=== PATIENT | male | born 1930 | race Caucasian/White ===

== ENCOUNTER 2017-05-09 07:55 | Day surgery (SDC) | payer MEDICARE ==
[~2017-05-09 07:55] MED LIST: Buffered Lidocaine 0.9% SYRIN* 5 ML/SYR SYRINGE INTRADERM ONE; Dexamethasone IV* 4 MG/ML 1 ML (4 MG) IV SLOW PU ONE; Famotidine IV* 10 MG/ML 2 ML (20 mg) IV ONE
[2017-05-09] MEDS ORDERED: Famotidine IV* 10 MG/ML 2 ML (20 mg) ONE (07:59)
[2017-05-09] MEDS ORDERED: Buffered Lidocaine 0.9% SYRIN* 5 ML/SYR SYRINGE ONE (08:00)
[2017-05-09] MEDS ORDERED: Dexamethasone IV* 4 MG/ML 1 ML (4 MG) ONE (08:00)
[2017-05-09] MEDS ORDERED: Mineral Oil Sterile, TOPICAL* 25 ML BTL ONE (09:46)
[2017-05-09] MEDS ORDERED: Methylene Blue 0.5 %* 50 MG/10 ML AMP IV ONE (09:46)
[2017-05-09] MEDS ORDERED: Lidocaine 1% MPF wEPI 200,000* 30 ML SDV ONE (09:46)
[2017-05-09] MEDS ORDERED: Bupivacaine 0.25% EPI 200,000* 30 ML SDV ONE (09:46)
[2017-05-09] MEDS ORDERED: fentaNYL* 50 MCG/ML 2 ML VIAL (100 MCG VIAL) ONE (09:48)
[2017-05-09] MEDS ORDERED: Ondansetron INJ* 2 MG/ML VIAL ONE (09:48)
[2017-05-09] MEDS ORDERED: Propofol* 10 MG/ML 20 ML BTL IV PUSH ONE (09:48)
[2017-05-09] MEDS ORDERED: Midazolam* 1 MG/ML 5 ML VIAL (5 MG) ONE (09:48)
[2017-05-09 12:09] VITALS: BP 127/75
== END 2017-05-09 12:16 | disposition home or self-care (01) ==
LOC: OR 07:55
PROVIDERS: ATTEND Plastic Surgery
PROC: 0HB0XZZ Excision of Scalp Skin, External Approach (ICD-10-PCS; principal; 2017-05-09 09:30)
DX: L90.5 Scar conditions and fibrosis of skin (principal); I10 Essential (primary) hypertension; N40.0 Benign prostatic hyperplasia without lower urinary tract symptoms; G47.33 Obstructive sleep apnea (adult) (pediatric); Z88.2 Allergy status to sulfonamides; Z88.1 Allergy status to other antibiotic agents; Z88.0 Allergy status to penicillin
CPT/HCPCS: 88305; 88331; 88332; A9270-GY; J1100; J2001; J2250; J2405; J2704; J3010

== ENCOUNTER 2017-10-04 16:45 | Emergency (ER) | payer OTHER ==
[2017-10-04 20:58] LABS: Hematocrit 44 % (42-52); Hemoglobin 14.9 g/dl (14.0-18.0); Mean Corpuscular HGB Conc 34 g/dl (31-36); Mean Corpuscular Hemoglobin 30 pg (27-31); Mean Corpuscular Volume 87 fL (80-94); Mean Platelet Volume 9 um3 (7.4-10.4); Red Blood Count 5.04 10^6/ul (4.0-5.4); Red Cell Distribution Width 13 % (10.5-15); White Blood Count 10.6 10^3/ul (3.5-10.8)
[2017-10-04 21:09] LABS: Urine Bacteria Absent (Absent); Urine Bilirubin Negative (Negative); Urine Glucose Negative (Negative); Urine Nitrite Negative (Negative)
[2017-10-04 21:13] LABS: ALT 16 U/L (7-52); Albumin 4.5 g/dL (3.2-5.2); Alkaline Phosphatase 60 U/L (34-104); Amylase 36 U/L (29-103); BUN/Creatinine Ratio 14.8 (8-20); Blood Urea Nitrogen 13 mg/dL (6-24); C Reactive Protein 7.72 mg/L (< 5.00); CO2 Carbon Dioxide 29 mmol/L (22-32); Calcium 9.9 mg/dL (8.6-10.3); Chloride 98 mmol/L (101-111); Creatine Kinase 194 U/L (10-223); EGFR African American 106.1 (>60); EGFR Non-African American 82.5 (>60); Globulin 3.5 g/dL (2-4); Glucose 113 mg/dL (70-100); Lipase 10 U/L (11.0-82.0); Magnesium 2.2 mg/dL (1.9-2.7); Sodium 136 mmol/L (133-145)
[2017-10-04 21:14] LABS: Troponin I 0.01 ng/mL (<0.04)
[2017-10-04 21:26] LABS: Anion Gap 9 mmol/L (2-11)
[2017-10-04] MEDS ORDERED: Iohexol 300* (CONTRAST) 10 ML SDV IV ONE (23:51)
[2017-10-05] MEDS ORDERED: Potassium Chlor TAB* 20 MEQ TAB.ER PO ONE (00:44)
[2017-10-05 00:58] VITALS: BP 156/84
--- NOTE | 2017-10-05 08:36 | RAD ---
INDICATION: Right lower quadrant abdominal pain. COMPARISON: Comparison is made with a prior CT of the abdomen and pelvis from November 16, 2009. TECHNIQUE: A CT scan of the abdomen and pelvis was performed with intravenous and oral contrast following intravenous injection of 127 ml of Omnipaque 300 nonionic contrast. Contiguous axial sections were obtained from the lung bases through the symphysis pubis. Images were reconstructed in the coronal and sagittal planes. FINDINGS: There is mild dependent bilateral lower lobe subsegmental atelectasis. No pleural effusion is present. The liver and spleen are normal in size. There is a small 0.5 cm hypodense lesion present in the inferior portion of the right hepatic lobe which is unchanged from the prior exam most consistent with a cyst. No other focal hepatic abnormalities are seen. No calcified gallstones are noted. The pancreas is normal in size. There is a very small cystic lesion in the tail of pancreas measuring 0.3 cm in size which is unchanged from the prior exam. No pancreatic ductal distention or calcifications are seen. The adrenal glands appear to be within normal limits. 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 No renal calculi are seen. There are multiple bilateral renal cysts. In addition there is a new hypodense lesion arising the posterior aspect of the left kidney measuring 2.1 x 1.5 cm in size possibly representing a complex cyst less likely a solid abnormality. Recommend a renal ultrasound for further evaluation. No hydronephrosis is seen. No urinary bladder wall thickening is noted. The prostate gland is enlarged measuring 6.0 cm in transverse dimension. The aorta is normal in caliber with mild calcific plaque present. No significant enlarged retroperitoneal lymph nodes are seen. There appears to be a small hiatal hernia. The stomach, small and large bowel appear nondistended. The appendix is not well visualized. No inflammatory changes are seen in the right lower quadrant. There is mild descending and sigmoid diverticulosis without evidence for diverticulitis. No free intraperitoneal air or fluid is seen. No significant focal osseous abnormality is seen. IMPRESSION: 1. NO EVIDENCE FOR ACUTE FINDING OR CAUSE FOR THE PATIENT'S ABDOMINAL PAIN IS SEEN. 2. COMPLEX LEFT RENAL CYST VERSUS SOLID ABNORMALITY. RECOMMEND A RENAL ULTRASOUND FOR FURTHER EVALUATION.
--- NOTE | 2017-10-05 12:24 | ED ---
Dale Leal Alfonso, scribed for Zoila Luna MD on 10/04/17 at 2030 . Abdominal Pain/Male - HPI Summary HPI Summary: This patient is an 86 year old M presenting to [facility] with a chief complaint of burning and dull RLQ abdominal pain since approximately 1 month ago, worse since yesterday. The pain radiates to his back, right groin, and right hip. The patient rates the pain 6/10 in severity. Symptoms aggravated by nothing. Symptoms alleviated by nothing. Patient reports nausea (mild), constipation ( 1.5 months), diarrhea (1.5 months with mucous and alleviated by Imodium), feeling bloated, and gas (1.5 months). Patient denies fever, CP, vomiting, blood in the stool, melena, dysuria, testicular pain, and recent trauma. He was on a 1 week course of abx a few weeks ago. States he has been tested for C difficile since that course of antibiotics and it was negative. Pt drove himself to the ED and is alone in the ED because his has Parkinson's and requires mercantile agent care. Pt declines pain medication at this time, because he is hoping to be able to drive himself home if there is no serious illness. Pt states he just wants to know if it is appendicitis or anything serious or emergent tonight. Pt states he had an episode of abd pain years ago, where his bowel was "twisted on itself" and he had a colonscopy that straightened out the bowel, and did not require surgery. - History of Current Complaint Chief Complaint: Kasia Stated Complaint: ABD PAIN Time Seen by Provider: 10/04/17 20:26 Hx Obtained From: Patient Onset/Duration: Gradual Onset, Still Present, Worse Since - yesterday, Other - Lasting 1 month Timing: Constant Severity Initially: Moderate Severity Currently: Moderate Pain Intensity: 6 Pain Scale Used: 0-10 Numeric Location: Discrete At: RLQ Radiates: Yes Radiates to: Other - back, right groin, and right hip Character: Dull, Burning Aggravating Factor(s): Nothing Alleviating Factor(s): Nothing Associated Signs And Symptoms: Positive: Constipation, Nausea, Diarrhea, Other - nausea (mild), constipation (1.5 months), diarrhea (1.5 months with mucous and alleviated by Imodium), feeling bloated, and gas (1.5 months). Patient denies fever, CP, vomiting, blood in the stool, melena, dysuria, and recent trauma. - Allergies/Home Medications Allergies/Adverse Reactions: Allergies Allergy/AdvReac Type Severity Reaction Status Date / Time Atorvastatin [From Lipitor] Allergy Unknown Verified 05/09/17 08:13 Reaction Details Cetirizine [From Zyrtec] Allergy Unknown Verified 05/09/17 08:13 Reaction Details Ciprofloxacin Allergy Unknown Verified 05/09/17 08:13 Reaction Details Clindamycin Allergy NIGHTMARES Verified 05/09/17 08:13 Fluticasone [From Flonase] Allergy Unknown Verified 05/09/17 08:13 Reaction Details Lisinopril Allergy FACIAL Verified 05/09/17 08:13 SWELLING Penicillins [PCN] Allergy FACIAL Verified 05/09/17 08:13 SWELLING Pravastatin Allergy Unknown Verified 05/09/17 08:13 Reaction Details SULFA DRUGS Allergy FACIAL Uncoded 05/09/17 08:13 SWELLING PMH/Surg Hx/FS Hx/Imm Hx Previously Healthy: No Cardiovascular History: Reports: Hx Hypertension - ON MEDICATION FOR, Hx Rheumatic Fever - A CHILD- STATES NO KNOWN MURMUR Respiratory History: Reports: Other Respiratory Problems/Disorders - 15-20 YEARS AGO- PNEUMONIA History: Reports: Hx Benign Prostatic Hyperplasia - sees Dr. Amezquita, is on Tamsulosin Musculoskeletal History: Reports: Hx Arthritis - HIP AND KNEES Sensory History: Reports: Hx Cataracts - BILATERAL, Hx Contacts or Glasses - GLASSES, Hx Hearing Aid - BILATERAL Opthamlomology History: Reports: Hx Cataracts - BILATERAL, Hx Contacts or Glasses - GLASSES EENT History: Denies: Hx Deafness - Surgical History Surgery Procedure, Year, and Place: left side "artery clip" by Dr Zhao 10-15 yrs ago-points at his left tenriism. 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 Hx Anesthesia Reactions: No Infectious Disease History: No Infectious Disease History: Denies: Traveled Outside the [place] in Last 30 Days - Family History Known Family History: Positive: Other - Lung cancer (father) and CVA (mother); negative skin cancer, aneurysm Negative: Cardiac Disease - Social History Occupation: Retired Lives: With Family Alcohol Use: Rare Hx Substance Use: No Substance Use Type: Reports: None Hx Tobacco Use: Yes Smoking Status (MU): Former Smoker Amount Used/How Often: 1/4-1/2 PPD X 7 YEARS Have You Smoked in the Last Year: No Review of Systems Negative: Fever Negative: Chest Pain Respiratory: Negative Positive: Abdominal Pain, Nausea, Other - constipation (1.5 months), diarrhea ( 1.5 months with mucous and alleviated by Imodium), feeling bloated, and gas ( 1.5 months). Negative blood in the stool, melena. Negative: Vomiting Negative: dysuria Positive: Other - Negative recent trauma Skin: Negative Neurological: Negative Psychological: Normal All Other Systems Reviewed And Are Negative: Yes Physical Exam Triage Information Reviewed: Yes Vital Signs On Initial Exam: Initial Vitals Temp Pulse Resp BP Pulse Ox 97.0 F 87 16 172/92 98 10/04/17 16:48 10/04/17 16:48 10/04/17 16:48 10/04/17 16:48 10/04/17 16:48 Vital Signs Reviewed: Yes Appearance: Positive: Well-Appearing, Pain Distress, Obese Skin: Positive: Warm, Skin Color Reflects Adequate Perfusion Head/Face: Positive: Normal Head/Face Inspection Eyes: Positive: EOMI, Conjunctiva Clear ENT: Positive: Normal ENT inspection Neck: Positive: Supple Respiratory/Lung Sounds: Positive: Clear to Auscultation, Breath Sounds Present , Other - no respiratory distress Cardiovascular: Positive: RRR, Pulses are Symmetrical in both Upper and Lower Extremities, Other - brisk capillary refill. Negative: Murmur Abdomen Description: Positive: No Organomegaly, Soft, McBurney's Point Tenderness, Other: - Mild RLQ tenderness, No guarding, no rebound. No pulsatile mass, no bruits. Femoral pulses 2+ bilaterally with no bruits. Bowel Sounds: Positive: Present Male Genital Exam: Positive: normal genitalia, other - no testicular masses or tenderness; normal uncircumcised penis, no inguinal or femoral hernia bilaterally Musculoskeletal: Positive: Strength/ROM Intact, Other - No calf tenderness. Negative: Edema Left, Edema Right Neurological: Positive: Sensory/Motor Intact, Alert, Oriented to Person Place, Time, Normal Gait, Facial Symmetry, Speech Normal Psychiatric: Positive: Normal - Boyd Coma Scale Coma Scale Total: 15 Diagnostics - Vital Signs Vital Signs Temp Pulse Resp BP Pulse Ox 10/04/17 16:48 97.0 F 87 16 172/92 98 - Laboratory Lab Results: Lab Results 10/04/17 10/04/17 10/04/17 Range/Units 20:35 20:50 20:50 WBC (3.5-10.8) 10^3/ul RBC (4.0-5.4) 10^6/ul Hgb (14.0-18.0) g/dl Hct (42-52) % MCV (80-94) fL MCH (27-31) pg MCHC (31-36) g/dl RDW (10.5-15) % Plt Count (150-450) 10^3/ul MPV (7.4-10.4) um3 Neut % (Auto) (38-83) % Lymph % (Auto) (25-47) % Luna % (Auto) (1-9) % Eos % (Auto) (0-6) % Baso % (Auto) (0-2) % Absolute Neuts (auto) (1.5-7.7) 10^3/ul Absolute Lymphs (auto) (1.0-4.8) 10^3/ul Absolute Monos (auto) (0-0.8) 10^3/ul Absolute Eos (auto) (0-0.6) 10^3/ul Absolute Basos (auto) (0-0.2) 10^3/ul Absolute Nucleated RBC 10^3/ul Nucleated RBC % INR (Anticoag Therapy) (0.89-1.11) APTT (26.0-36.3) seconds Sodium 136 (133-145) mmol/L Potassium TNP Chloride 98 L (101-111) mmol/L Carbon Dioxide 29 (22-32) mmol/L Anion Gap 9 (2-11) mmol/L BUN 13 (6-24) mg/dL Creatinine 0.88 (0.67-1.17) mg/dL Est GFR ( Amer) 106.1 (>60) Est GFR (Non-Af Amer) 82.5 (>60) BUN/Creatinine Ratio 14.8 (8-20) Glucose 113 H (70-100) mg/dL Lactic Acid (0.5-2.0) mmol/L Calcium 9.9 (8.6-10.3) mg/dL Magnesium 2.2 (1.9-2.7) mg/dL Total Bilirubin 0.80 (0.2-1.0) mg/dL AST TNP ALT 16 (7-52) U/L Alkaline Phosphatase 60 (34-104) U/L Total Creatine Kinase 194 (10-223) U/L Troponin I 0.01 (<0.04) ng/mL C-Reactive Protein 7.72 H (< 5.00) mg/L B-Natriuretic Peptide 22 ( - 100) pg/mL Total Protein 8.0 (6.4-8.9) g/dL Albumin 4.5 (3.2-5.2) g/dL Globulin 3.5 (2-4) g/dL Albumin/Globulin Ratio 1.3 (1-3) Amylase 36 (29-103) U/L Lipase 10 L (11.0-82.0) U/L Urine Color Yellow Urine Appearance Clear Urine pH 7.0 (5-9) Ur Specific [place] 1.010 (1.010-1.030) Urine Protein 2+(100 mg/dl) H (Negative) Urine Ketones Negative (Negative) Urine Blood Negative (Negative) Urine Nitrate Negative (Negative) Urine Bilirubin Negative (Negative) Urine Urobilinogen Negative (Negative) Ur Leukocyte Esterase Negative (Negative) Urine WBC (Auto) Absent (Absent) Urine RBC (Auto) Absent (Absent) Urine Bacteria Absent (Absent) Urine Glucose Negative (Negative) Urine Ascorbic Acid * H (Negative) 10/04/17 10/04/17 10/04/17 Range/Units 20:50 20:50 20:50 WBC 10.6 (3.5-10.8) 10^3/ul RBC 5.04 (4.0-5.4) 10^6/ul Hgb 14.9 (14.0-18.0) g/dl Hct 44 (42-52) % MCV 87 (80-94) fL MCH 30 (27-31) pg MCHC 34 (31-36) g/dl RDW 13 (10.5-15) % Plt Count 280 (150-450) 10^3/ul MPV 9 (7.4-10.4) um3 Neut % (Auto) 68.4 (38-83) % Lymph % (Auto) 21.1 L (25-47) % Luna % (Auto) 6.7 (1-9) % Eos % (Auto) 3.0 (0-6) % Baso % (Auto) 0.8 (0-2) % Absolute Neuts (auto) 7.3 (1.5-7.7) 10^3/ul Absolute Lymphs (auto) 2.2 (1.0-4.8) 10^3/ul Absolute Monos (auto) 0.7 (0-0.8) 10^3/ul Absolute Eos (auto) 0.3 (0-0.6) 10^3/ul Absolute Basos (auto) 0.1 (0-0.2) 10^3/ul Absolute Nucleated RBC 0.01 10^3/ul Nucleated RBC % 0.1 INR (Anticoag Therapy) 0.87 L (0.89-1.11) APTT 28.3 (26.0-36.3) seconds Sodium (133-145) mmol/L Potassium Chloride (101-111) mmol/L Carbon Dioxide (22-32) mmol/L Anion Gap (2-11) mmol/L BUN (6-24) mg/dL Creatinine (0.67-1.17) mg/dL Est GFR ( Amer) (>60) Est GFR (Non-Af Amer) (>60) BUN/Creatinine Ratio (8-20) Glucose (70-100) mg/dL Lactic Acid 1.2 (0.5-2.0) mmol/L Calcium (8.6-10.3) mg/dL Magnesium (1.9-2.7) mg/dL Total Bilirubin (0.2-1.0) mg/dL AST ALT (7-52) U/L Alkaline Phosphatase (34-104) U/L Total Creatine Kinase (10-223) U/L Troponin I (<0.04) ng/mL C-Reactive Protein (< 5.00) mg/L B-Natriuretic Peptide ( - 100) pg/mL Total Protein (6.4-8.9) g/dL Albumin (3.2-5.2) g/dL Globulin (2-4) g/dL Albumin/Globulin Ratio (1-3) Amylase (29-103) U/L Lipase (11.0-82.0) U/L Urine Color Urine Appearance Urine pH (5-9) Ur Specific [place] (1.010-1.030) Urine Protein (Negative) Urine Ketones (Negative) Urine Blood (Negative) Urine Nitrate (Negative) Urine Bilirubin (Negative) Urine Urobilinogen (Negative) Ur Leukocyte Esterase (Negative) Urine WBC (Auto) (Absent) Urine RBC (Auto) (Absent) Urine Bacteria (Absent) Urine Glucose (Negative) Urine Ascorbic Acid (Negative) 10/04/17 Range/Units 21:38 WBC (3.5-10.8) 10^3/ul RBC (4.0-5.4) 10^6/ul Hgb (14.0-18.0) g/dl Hct (42-52) % MCV (80-94) fL MCH (27-31) pg MCHC (31-36) g/dl RDW (10.5-15) % Plt Count (150-450) 10^3/ul MPV (7.4-10.4) um3 Neut % (Auto) (38-83) % Lymph % (Auto) (25-47) % Luna % (Auto) (1-9) % Eos % (Auto) (0-6) % Baso % (Auto) (0-2) % Absolute Neuts (auto) (1.5-7.7) 10^3/ul Absolute Lymphs (auto) (1.0-4.8) 10^3/ul Absolute Monos (auto) (0-0.8) 10^3/ul Absolute Eos (auto) (0-0.6) 10^3/ul Absolute Basos (auto) (0-0.2) 10^3/ul Absolute Nucleated RBC 10^3/ul Nucleated RBC % INR (Anticoag Therapy) (0.89-1.11) APTT (26.0-36.3) seconds Sodium (133-145) mmol/L Potassium 3.3 L Chloride (101-111) mmol/L Carbon Dioxide (22-32) mmol/L Anion Gap (2-11) mmol/L BUN (6-24) mg/dL Creatinine (0.67-1.17) mg/dL Est GFR ( Amer) (>60) Est GFR (Non-Af Amer) (>60) BUN/Creatinine Ratio (8-20) Glucose (70-100) mg/dL Lactic Acid (0.5-2.0) mmol/L Calcium (8.6-10.3) mg/dL Magnesium (1.9-2.7) mg/dL Total Bilirubin (0.2-1.0) mg/dL AST 17 ALT (7-52) U/L Alkaline Phosphatase (34-104) U/L Total Creatine Kinase (10-223) U/L Troponin I (<0.04) ng/mL C-Reactive Protein (< 5.00) mg/L B-Natriuretic Peptide ( - 100) pg/mL Total Protein (6.4-8.9) g/dL Albumin (3.2-5.2) g/dL Globulin (2-4) g/dL Albumin/Globulin Ratio (1-3) Amylase (29-103) U/L Lipase (11.0-82.0) U/L Urine Color Urine Appearance Urine pH (5-9) Ur Specific [place] (1.010-1.030) Urine Protein (Negative) Urine Ketones (Negative) Urine Blood (Negative) Urine Nitrate (Negative) Urine Bilirubin (Negative) Urine Urobilinogen (Negative) Ur Leukocyte Esterase (Negative) Urine WBC (Auto) (Absent) Urine RBC (Auto) (Absent) Urine Bacteria (Absent) Urine Glucose (Negative) Urine Ascorbic Acid (Negative) Result Diagrams: 10/04/17 20:50 10/04/17 21:38 Lab Statement: Any lab studies that have been ordered have been reviewed, and results considered in the medical decision making process. - CT A/P CT Interpretation Completed By: Radiologist - New complex cyst or mass emanating from the posterior left renal midpole which can be further evaluated with nonemergent US. No definite acute pathology. ED physician has reviewed this radiology report and agrees. - EKG 2110 Cardiac Rate: NL EKG Rhythm: Sinus Rhythm - [address] Segment: Non-Specific EKG Interpretation: Nml AV/IV conduction time and QTC. -35 negative axis. Q wave in III and AVF EKG Comparison: Other - No prior to compare Re-Evaluation - Re-Evaluation First Eval Re-Evaluation Time: 00:20 Change: Improved - pt ambulated to BR. Pain is controlled without pain medication. Awaiting CT. Second Eval Re-Evaluation Time: 00:48 Change: Improved Comment: Reviewed labs and plan for discharge. Patient understands and agrees. He reports feeling much better. Pt voices understanding of the findings of the CT describing mass vs cyst in his left kidney. Pt has no pain in his left flank or abdomen and no hematuria. States he knows he has had cysts in his kidney and will be sure to follow up with Dr. Cruz. Abdominal Pain Fem Course/Dx - Course Assessment/Plan: This patient is an 86 year old M presenting to [facility] with a chief complaint of burning and dull RLQ abdominal pain since approximately 1 month ago, worse since yesterday. The pain radiates to his back, right groin, and right hip. The patient rates the pain 6/10 in severity. Symptoms aggravated by nothing. Symptoms alleviated by nothing. Patient reports nausea (mild), constipation (1.5 months), diarrhea (1.5 months with mucous and alleviated by Imodium), feeling bloated, and gas (1.5 months). Patient denies fever, CP, vomiting, blood in the stool, melena, dysuria, and recent trauma. He was on a 1 week course of abx a few weeks ago. An EKG reveals Sinus Rhythm at. 80 BPM. Nml AV/IV conduction time and QTC. -35 negative axis. Q wave in III and AVF. Nonspecific ST and T wave changes. No prior EKG to compare. CT A/P reveals, per radiologist, New complex cyst or mass emanating from the posterior left renal midpole which can be further evaluated with nonemergent US. No definite acute pathology. ED physician has reviewed this radiology report and agrees. Patient s medications reviewed this visit. Pt declined pain medication while in the ED, hoping to drive himself home. Pt was given KCl 40 mEq for K+ 3.3. Patient will be discharged to follow up with Dr. Cruz. The patient is agreeable with this plan. - Diagnoses Differential Diagnosis/HQI/PQRI: Abdominal Aortic Aneurysm, Appendicitis, Bowel Obstruction, Constipation, Pancreatitis, Renal Colic, Ureteral Stone, Urinary Tract Infection Provider Diagnoses: Acute abdominal pain in right lower quadrant, left renal mass vs cyst, Hypertension, poor control, Hypokalemia Discharge - Discharge Plan Condition: Stable Disposition: HOME Patient Education Materials: Acute Abdominal Pain (ED) Referrals: Linda Cruz MD [Primary Care Provider] - 2 Days () Additional Instructions: The CT scan did not show appendicitis. It showed a complex cyst or a mass on the left kidney which is new compared to a CT done on 11/16/09. This needs to be evaluated further with Dr. Cruz, including an ultrasound. This is a preliminary report. Be sure to have Dr. Cruz check the final report. Return to the ER if you have new or worsening symptoms. The documentation as recorded by the Dale barraza Alfonso accurately reflects the service I personally performed and the decisions made by , Zoila Luna MD.
== END 2017-10-05 01:00 | disposition home or self-care (01) ==
LOC: ED 16:45
DX: R10.31 Right lower quadrant pain (principal); N28.89 Other specified disorders of kidney and ureter; I10 Essential (primary) hypertension; E87.6 Hypokalemia
CPT/HCPCS: 36415; 74177; 80053; 81003; 81015; 82150; 82550; 83605; 83690; 83735; 83880; 84484; 85025; 85610; 85730; 86140; 93005; 99283; A9270-GY; Q9967

== ENCOUNTER 2018-05-19 22:36 | Inpatient (IN) | payer BC, MEDICARE, OTHER ==
[2018-05-19] MEDS ORDERED: Acetaminophen TAB* 325 MG PO ONE (23:07)
[2018-05-19] MEDS ORDERED: Vancomycin(*) 1,000 MG in NS 0.9% 250 ML* 250 ML IVPB ONE (23:19)
[2018-05-19 23:25] LABS: ABS Basophils 0.1 10^3/ul (0-0.2); ABS Eosinophils 0.2 10^3/ul (0-0.6); ABS Lymphocytes 1.6 10^3/ul (1.0-4.8); ABS Neutrophils 10.8 10^3/ul (1.5-7.7); ABS Nucleated RBC 0 10^3/ul; Eosinophil % 1.7 % (0-6); Hematocrit 38 % (42-52); Hemoglobin 13.2 g/dl (14.0-18.0); Lymphocyte % 11.7 % (25-47); Mean Corpuscular HGB Conc 35 g/dl (31-36); Mean Corpuscular Hemoglobin 30 pg (27-31); Mean Corpuscular Volume 86 fL (80-94); Mean Platelet Volume 8.9 um3 (7.4-10.4); Nucleated Red Blood Cells % 0; Platelet Count 215 10^3/ul (150-450); Red Blood Count 4.37 10^6/ul (4.00-5.40); Red Cell Distribution Width 13 % (10.5-15); White Blood Count 13.7 10^3/ul (3.5-10.8)
[2018-05-19 23:36] LABS: INR 0.98 (0.77-1.02)
[2018-05-19 23:44] LABS: EGFR Non-African American 63.6 (>60)
[2018-05-20 01:12] LABS: Urine Appearance Clear; Urine Blood Negative (Negative); Urine Color Straw; Urine Ketones Negative (Negative); Urine Protein 1+(30 mg/dL) (Negative); Urine Specific Gravity 1.006 (1.010-1.030); Urine Urobilinogen Negative (Negative)
--- NOTE | 2018-05-20 02:56 | ED ---
Crista Leal Rebecca, scribed for Reilly Watermanuel on 05/19/18 at 2250 . HPI Febrile Illness - HPI Summary HPI Summary: Pt is an 87 y/o M who presents to ED c/o right-sided ear pain, posterior neck pain and throat pain. Pt reports that the neck pain radiates downward and into the throat. On triage, pain is moderate ranked 5/10. Additionally c/o fever ( 103 at home). Denies cough, SOB. Took 400 mg Ibuprofen at 2100, per nurse's triage, which improved sx. 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 Teran, per pt. - History of Current Complaint Chief Complaint: EDFever Time Seen by Provider: 05/19/18 22:49 Hx Obtained From: Patient Onset/Duration: Still Present Current Severity: Moderate Pain Intensity: 5 Pain Scale Used: 0-10 Numeric Aggravating Factors: Nothing Alleviating Factors: OTC Medicine - Ibuprofen Associated Signs and Symptoms: Sore Throat, Other: - Neck pain, R ear pain - Allergy/Home Medications Allergies/Adverse Reactions: Allergies Allergy/AdvReac Type Severity Reaction Status Date / Time cetirizine [From Zyrtec] Allergy Unknown Verified 05/20/18 00:25 Reaction Details ciprofloxacin Allergy Unknown Verified 05/20/18 00:25 Reaction Details clindamycin Allergy Unknown Verified 05/20/18 00:25 Reaction Details fluticasone Allergy Unknown Verified 05/20/18 00:25 Reaction Details lisinopril Allergy Swelling Verified 05/20/18 00:25 Of Face,Lips,& Throat Penicillins Allergy Swelling Verified 05/20/18 00:25 Of Face,Lips,& Throat pravastatin Allergy Unknown Verified 05/20/18 00:25 Reaction Details Rkmphzj-Qke-Dnq Reductase Allergy Swelling Verified 05/20/18 00:25 Inhibitor Of Face,Lips,& Throat SULFA DRUGS Allergy FACIAL Uncoded 05/20/18 00:25 SWELLING PMH/Surg Hx/FS Hx/Imm Hx Endocrine/Hematology History: Denies: Hx Diabetes Cardiovascular History: Reports: Hx Hypertension - ON MEDICATION FOR, Hx Rheumatic Fever - A CHILD- STATES NO KNOWN MURMUR Respiratory History: Reports: Other Respiratory Problems/Disorders - 15-20 YEARS AGO- PNEUMONIA History: Reports: Hx Benign Prostatic Hyperplasia - sees Dr. Sharpe, is on Tamsulosin , Other Problems/Disorders - ENLARGED PROSTATE- ON MEDICATION FOR - SEE DR. SHARPE YEARLY FOR Denies: Hx Dialysis, Hx Renal Disease Musculoskeletal History: Reports: Hx Arthritis - HIP AND KNEES Sensory History: Reports: Hx Cataracts - BILATERAL, Hx Contacts or Glasses - GLASSES, Hx Hearing Aid - BILATERAL Denies: Hx Deafness Opthamlomology History: Reports: Hx Cataracts - BILATERAL, Hx Contacts or Glasses - GLASSES - Surgical History Surgery Procedure, Year, and Place: left side "artery clip" by Dr Zhao 10-15 yrs ago-points at his left [facility]. 2016-SQUAMOUS CELL-CHEEK AND NOSE- DR. TERAN-OFFICE Hx Anesthesia Reactions: No Infectious Disease History: Yes Infectious Disease History: Denies: Traveled Outside the [place] in Last 30 Days - Family History Known Family History: Positive: Other - Lung cancer (father) and CVA (mother); negative skin cancer, aneurysm Negative: Cardiac Disease - Social History Alcohol Use: Rare Hx Substance Use: No Substance Use Type: Reports: None Hx Tobacco Use: Yes Smoking Status (MU): Former Smoker Amount Used/How Often: 1/4-1/2 PPD X 7 YEARS Have You Smoked in the Last Year: No Review of Systems Positive: Fever Positive: Sore Throat, Ear Ache - Right Negative: Shortness Of Breath, Cough Positive: Other - Posterior neck pain All Other Systems Reviewed And Are Negative: Yes Physical Exam - Summary Physical Exam Summary: Appearance: Well appearing, Skin: warm, dry, reflects adequate perfusion Head/face: scar with sutures, erythema and tenderness of the scalp diffuse Eyes: EOMI, [place] ENT: normal Neck: supple, non-tender Respiratory: CTA, breath sounds present Cardiovascular: RRR, pulses symmetrical Abdomen: non-tender, soft Bowel: present Musculoskeletal: normal, strength/ROM intact Neuro: normal, sensory motor intact, A&Ox3 GCS: 15 Triage Information Reviewed: Yes Vital Signs On Initial Exam: Initial Vitals Temp Pulse Resp BP Pulse Ox 100.4 F 104 18 171/66 93 05/19/18 22:40 05/19/18 22:40 05/19/18 22:40 05/19/18 22:40 05/19/18 22:40 Vital Signs Reviewed: Yes Diagnostics - Vital Signs Vital Signs Temp Pulse Resp BP Pulse Ox 05/19/18 22:40 100.4 F 104 18 171/66 93 - Laboratory Lab Results: Lab Results 05/19/18 05/19/18 05/19/18 Range/Units 23:17 23:17 23:17 WBC 13.7 H (3.5-10.8) 10^3/ul RBC 4.37 (4.00-5.40) 10^6/ul Hgb 13.2 L (14.0-18.0) g/dl Hct 38 L (42-52) % MCV 86 (80-94) fL MCH 30 (27-31) pg MCHC 35 (31-36) g/dl RDW 13 (10.5-15) % Plt Count 215 (150-450) 10^3/ul MPV 8.9 (7.4-10.4) um3 Neut % (Auto) 78.7 (38-83) % Lymph % (Auto) 11.7 L (25-47) % [place]ill % (Auto) 7.0 (0-7) % Eos % (Auto) 1.7 (0-6) % Baso % (Auto) 0.9 (0-2) % Absolute Neuts (auto) 10.8 H (1.5-7.7) 10^3/ul Absolute Lymphs (auto) 1.6 (1.0-4.8) 10^3/ul Absolute Monos (auto) 1.0 H (0-0.8) 10^3/ul Absolute Eos (auto) 0.2 (0-0.6) 10^3/ul Absolute Basos (auto) 0.1 (0-0.2) 10^3/ul Absolute Nucleated RBC 0 10^3/ul Nucleated RBC % 0 INR (Anticoag Therapy) (0.77-1.02) APTT (26.0-36.3) seconds Sodium 135 (135-145) mmol/L Potassium 3.0 L (3.5-5.0) mmol/L Chloride 97 L (101-111) mmol/L Carbon Dioxide 27 (22-32) mmol/L Anion Gap 11 (2-11) mmol/L BUN 17 (6-24) mg/dL Creatinine 1.10 (0.67-1.17) mg/dL Est GFR ( Amer) 77.0 (>60) Est GFR (Non-Af Amer) 63.6 (>60) BUN/Creatinine Ratio 15.5 (8-20) Glucose 181 H (70-100) mg/dL Lactic Acid 1.4 (0.5-2.0) mmol/L Calcium 8.6 (8.6-10.3) mg/dL Total Bilirubin 0.60 (0.2-1.0) mg/dL AST 14 (13-39) U/L ALT 12 (7-52) U/L Alkaline Phosphatase 65 (34-104) U/L C-Reactive Protein 104.84 H (<8.01) mg/L Total Protein 7.0 (6.4-8.9) g/dL Albumin 3.7 (3.2-5.2) g/dL Globulin 3.3 (2-4) g/dL Albumin/Globulin Ratio 1.1 (1-3) Urine Color Urine Appearance Urine pH (5-9) Ur Specific [place] (1.010-1.030) Urine Protein (Negative) Urine Ketones (Negative) Urine Blood (Negative) Urine Nitrate (Negative) Urine Bilirubin (Negative) Urine Urobilinogen (Negative) Ur Leukocyte Esterase (Negative) Urine WBC (Auto) (Absent) Urine RBC (Auto) (Absent) Urine Bacteria (Absent) Urine Glucose (Negative) 05/19/18 05/20/18 Range/Units 23:17 00:58 WBC (3.5-10.8) 10^3/ul RBC (4.00-5.40) 10^6/ul Hgb (14.0-18.0) g/dl Hct (42-52) % MCV (80-94) fL MCH (27-31) pg MCHC (31-36) g/dl RDW (10.5-15) % Plt Count (150-450) 10^3/ul MPV (7.4-10.4) um3 Neut % (Auto) (38-83) % Lymph % (Auto) (25-47) % [place] % (Auto) (0-7) % Eos % (Auto) (0-6) % Baso % (Auto) (0-2) % Absolute Neuts (auto) (1.5-7.7) 10^3/ul Absolute Lymphs (auto) (1.0-4.8) 10^3/ul Absolute Monos (auto) (0-0.8) 10^3/ul Absolute Eos (auto) (0-0.6) 10^3/ul Absolute Basos (auto) (0-0.2) 10^3/ul Absolute Nucleated RBC 10^3/ul Nucleated RBC % INR (Anticoag Therapy) 0.98 (0.77-1.02) APTT 28.6 (26.0-36.3) seconds Sodium (135-145) mmol/L Potassium (3.5-5.0) mmol/L Chloride (101-111) mmol/L Carbon Dioxide (22-32) mmol/L Anion Gap (2-11) mmol/L BUN (6-24) mg/dL Creatinine (0.67-1.17) mg/dL Est GFR ( Amer) (>60) Est GFR (Non-Af Amer) (>60) BUN/Creatinine Ratio (8-20) Glucose (70-100) mg/dL Lactic Acid (0.5-2.0) mmol/L Calcium (8.6-10.3) mg/dL Total Bilirubin (0.2-1.0) mg/dL AST (13-39) U/L ALT (7-52) U/L Alkaline Phosphatase (34-104) U/L C-Reactive Protein (<8.01) mg/L Total Protein (6.4-8.9) g/dL Albumin (3.2-5.2) g/dL Globulin (2-4) g/dL Albumin/Globulin Ratio (1-3) Urine Color Straw Urine Appearance Clear Urine pH 6.0 (5-9) Ur Specific [place] 1.006 L (1.010-1.030) Urine Protein 1+(30 mg/dl) A (Negative) Urine Ketones Negative (Negative) Urine Blood Negative (Negative) Urine Nitrate Negative (Negative) Urine Bilirubin Negative (Negative) Urine Urobilinogen Negative (Negative) Ur Leukocyte Esterase Negative (Negative) Urine WBC (Auto) Absent (Absent) Urine RBC (Auto) Trace(0-2/hpf) (Absent) Urine Bacteria Absent (Absent) Urine Glucose Negative (Negative) Result Diagrams: 05/19/18 23:17 05/19/18 23:17 Lab Statement: Any lab studies that have been ordered have been reviewed, and results considered in the medical decision making process. - Radiology CXR Xray Interpretation: No Acute Changes Radiology Interpretation Completed By: ED Physician - CT Brain CT CT Interpretation: No Acute Changes - No acute pathology. Results reviewed by physician. CT Interpretation Completed By: Radiologist Course/Dx - Course Assessment/Plan: Pt is an 87 y/o M who presents to ED c/o right-sided ear pain, posterior neck pain and throat pain with fever (103 at home). On triage, pain is moderate ranked 5/10. Denies cough, SOB. Took 400 mg Ibuprofen at 2100, per nurse's triage, which improved sx. 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 Teran. Brain CT and CXR reveal no acute findings. In the ED course, pt received Tylenol and Vancomycin. Blood work was done with results including WBC of 13.7, Hgb of 13.2 , CRP of 104.84. UA had 1+ protein and trace RBC, absent for bacteria, glucose, ketones, and nitrate. Discussed care of pt with Dr. Mays who accepts for admission. Allergies noted. 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 Discussed care of pt with Dr. Mays again at 0230 who accepts pt for admission. Discharge - Sign-Out/Discharge Documenting (check all that apply): Discharge/Admit/Transfer - Admit - Discharge Plan Condition: Stable Disposition: ADMITTED TO [facility] Referrals: Linda Cruz MD [Primary Care Provider] - - Billing Disposition and Condition Condition: STABLE Disposition: Admitted to [facility] The documentation as recorded by the Crista barraza Rebecca accurately reflects the service I personally performed and the decisions made by , Bryant Waterman.
[2018-05-20] MEDS ORDERED: Albuterol 2.5 MG/3 ML NEB.SOL* (0.083%) INH PRN (03:54)
[2018-05-20] MEDS ORDERED: Ondansetron ODT TAB* 4 MG PO PRN (03:55)
[2018-05-20] MEDS ORDERED: NS 0.9% 1000 ML* 1,000 ML IV SCH (04:00)
[2018-05-20] MEDS ORDERED: Vancomycin per Pharmacy* NOTE FOLLOW UP SCH (04:00)
--- NOTE | 2018-05-20 04:04 | HP ---
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 Last night he began to feel poorly around 2100 and found his temperature to be 103F. He had pain radiating throughout his head and down his neck making him concerned for meningitis and prompting him to present for evaluation. He does not have any confusion, lethargy, or severe headache. He has been given IV vancomycin due to his numerous ABX allergies and is feeling much better. Per ED he had considerable amount of scalp erythema surrounding the incision and sutures which is now much improved. He reports R ear pain, but no diarrhea, B/U/F of urine, cough, congestion, or other issues. WBCs are 13k. 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 Aspirin TAB* [Aspirin 325 MG TAB*] 325 mg PO DAILY 05/02/17 Dutasteride/Tamsulosin HCl [Dutasteride/Tamsulosin Hy 0.5-0.4 mg] 1 cap PO QPM 05/02/17 Gluc [place]/Chondro [place] A/Vit C/Mn [Glucosamine Chondroitin] 1 tab PO BID 05/02/17 Hydrochlorothiazide TAB* [Hydrodiuril TAB*] 25 mg PO QAM 05/02/17 Krill Oil [Krill Oil 300 mg] 1 cap PO DAILY 05/02/17 Magnesium Oxide TAB* [MagOx 400 TAB*] 400 mg PO QPM 05/02/17 Multiple Vitamins W/ Minerals [Preservision Areds 2 + Mu] 1 cap PO BID 05/02/17 Ubidecarenone [Co Q-10] 200 mg PO BID 05/02/17 amLODIPine TAB* [Norvasc 5 mg TAB*] 10 mg PO QAM 05/02/17 Allergies cetirizine [From Zyrtec] Allergy (Verified 05/20/18 00:25) Unknown Reaction Details ciprofloxacin Allergy (Verified 05/20/18 00:25) Unknown Reaction Details clindamycin Allergy (Verified 05/20/18 00:25) Unknown Reaction Details fluticasone Allergy (Verified 05/20/18 00:25) Unknown Reaction Details lisinopril Allergy (Verified 05/20/18 00:25) Swelling Of Face,Lips,& Throat Penicillins Allergy (Verified 05/20/18 00:25) Swelling Of Face,Lips,& Throat pravastatin Allergy (Verified 05/20/18 00:25) Unknown Reaction Details Pzrowrb-Owh-Iry Reductase Inhibitor Allergy (Verified 05/20/18 00:25) Swelling Of Face,Lips,& Throat SULFA DRUGS Allergy (Uncoded 05/20/18 00:25) FACIAL SWELLING PSurgHx SCCA excision 05/17/2018 tonsillectomy SocHx: quit smoking 1958, minimal alcohol, no recreational drugs; ( passed November 2017); 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 Mother passed of CVA. ROS: as above, otherwise reviewed and all were negative vitals: Vital Signs Temp 38.0 C 05/19/18 22:40 Pulse 66 05/20/18 03:50 Resp 18 05/19/18 22:40 BP 136/75 05/20/18 03:48 Pulse Ox 93 05/20/18 03:50 Intake & Output 05/19/18 05/19/18 05/20/18 11:59 23:59 11:59 Weight 95.254 kg Constitutional: NAD, normally developed, obese elderly white male HEENM: atraumatic; sclera/conjunctiva: anicteric/clear; R tympanic membrane clear w/o erythema, L dull w/o erythema; hearing: clinically intact; oropharynx : clear, mucosa moist Neck: soft tissue: no nuchal rigidity; thyroid: normal Pulmonary: clear to auscultation bilaterally, good aeration, no accessory muscle use CV: RR/RR, normal S1S2, no carotid bruit, no jugular venous distention, 2+ B DP/ PT, no edema Abdominal: soft, non-distended, non-tender, no rebound/guarding/rigidity, normoactive bowel sounds, no hepatosplenomegaly or masses, no costovertebral angle tenderness Musculoskeletal: general: absent R 2nd distal phalanx; otherwise grossly intact , non-tender Integumental: posterior apex of scalp w/ flocculent ~8cm incision with sutures intact with scant purulence expressible, tender, warm, & erythematous Psychiatric orientation: AA&O to PPS affect: calm mood: very pleasant eye contact: good content: reliable responses: timely insight: good Testing: Lab Results 05/19/18 05/19/18 05/19/18 Range/Units 23:17 23:17 23:17 WBC 13.7 H (3.5-10.8) 10^3/ul RBC 4.37 (4.00-5.40) 10^6/ul Hgb 13.2 L (14.0-18.0) g/dl Hct 38 L (42-52) % MCV 86 (80-94) fL MCH 30 (27-31) pg MCHC 35 (31-36) g/dl RDW 13 (10.5-15) % Plt Count 215 (150-450) 10^3/ul MPV 8.9 (7.4-10.4) um3 Neut % (Auto) 78.7 (38-83) % Lymph % (Auto) 11.7 L (25-47) % [place] % (Auto) 7.0 (0-7) % Eos % (Auto) 1.7 (0-6) % Baso % (Auto) 0.9 (0-2) % Absolute Neuts (auto) 10.8 H (1.5-7.7) 10^3/ul Absolute Lymphs (auto) 1.6 (1.0-4.8) 10^3/ul Absolute Monos (auto) 1.0 H (0-0.8) 10^3/ul Absolute Eos (auto) 0.2 (0-0.6) 10^3/ul Absolute Basos (auto) 0.1 (0-0.2) 10^3/ul Absolute Nucleated RBC 0 10^3/ul Nucleated RBC % 0 INR (Anticoag Therapy) (0.77-1.02) APTT (26.0-36.3) seconds Sodium 135 (135-145) mmol/L Potassium 3.0 L (3.5-5.0) mmol/L Chloride 97 L (101-111) mmol/L Carbon Dioxide 27 (22-32) mmol/L Anion Gap 11 (2-11) mmol/L BUN 17 (6-24) mg/dL Creatinine 1.10 (0.67-1.17) mg/dL Est GFR ( Amer) 77.0 (>60) Est GFR (Non-Af Amer) 63.6 (>60) BUN/Creatinine Ratio 15.5 (8-20) Glucose 181 H (70-100) mg/dL Lactic Acid 1.4 (0.5-2.0) mmol/L Calcium 8.6 (8.6-10.3) mg/dL Total Bilirubin 0.60 (0.2-1.0) mg/dL AST 14 (13-39) U/L ALT 12 (7-52) U/L Alkaline Phosphatase 65 (34-104) U/L C-Reactive Protein 104.84 H (<8.01) mg/L Total Protein 7.0 (6.4-8.9) g/dL Albumin 3.7 (3.2-5.2) g/dL Globulin 3.3 (2-4) g/dL Albumin/Globulin Ratio 1.1 (1-3) Urine Color Urine Appearance Urine pH (5-9) Ur Specific [place] (1.010-1.030) Urine Protein (Negative) Urine Ketones (Negative) Urine Blood (Negative) Urine Nitrate (Negative) Urine Bilirubin (Negative) Urine Urobilinogen (Negative) Ur Leukocyte Esterase (Negative) Urine WBC (Auto) (Absent) Urine RBC (Auto) (Absent) Urine Bacteria (Absent) Urine Glucose (Negative) 05/19/18 05/20/18 Range/Units 23:17 00:58 WBC (3.5-10.8) 10^3/ul RBC (4.00-5.40) 10^6/ul Hgb (14.0-18.0) g/dl Hct (42-52) % MCV (80-94) fL MCH (27-31) pg MCHC (31-36) g/dl RDW (10.5-15) % Plt Count (150-450) 10^3/ul MPV (7.4-10.4) um3 Neut % (Auto) (38-83) % Lymph % (Auto) (25-47) % [place] % (Auto) (0-7) % Eos % (Auto) (0-6) % Baso % (Auto) (0-2) % Absolute Neuts (auto) (1.5-7.7) 10^3/ul Absolute Lymphs (auto) (1.0-4.8) 10^3/ul Absolute Monos (auto) (0-0.8) 10^3/ul Absolute Eos (auto) (0-0.6) 10^3/ul Absolute Basos (auto) (0-0.2) 10^3/ul Absolute Nucleated RBC 10^3/ul Nucleated RBC % INR (Anticoag Therapy) 0.98 (0.77-1.02) APTT 28.6 (26.0-36.3) seconds Sodium (135-145) mmol/L Potassium (3.5-5.0) mmol/L Chloride (101-111) mmol/L Carbon Dioxide (22-32) mmol/L Anion Gap (2-11) mmol/L BUN (6-24) mg/dL Creatinine (0.67-1.17) mg/dL Est GFR ( Amer) (>60) Est GFR (Non-Af Amer) (>60) BUN/Creatinine Ratio (8-20) Glucose (70-100) mg/dL Lactic Acid (0.5-2.0) mmol/L Calcium (8.6-10.3) mg/dL Total Bilirubin (0.2-1.0) mg/dL AST (13-39) U/L ALT (7-52) U/L Alkaline Phosphatase (34-104) U/L C-Reactive Protein (<8.01) mg/L Total Protein (6.4-8.9) g/dL Albumin (3.2-5.2) g/dL Globulin (2-4) g/dL Albumin/Globulin Ratio (1-3) Urine Color Straw Urine Appearance Clear Urine pH 6.0 (5-9) Ur Specific [place] 1.006 L (1.010-1.030) Urine Protein 1+(30 mg/dl) A (Negative) Urine Ketones Negative (Negative) Urine Blood Negative (Negative) Urine Nitrate Negative (Negative) Urine Bilirubin Negative (Negative) Urine Urobilinogen Negative (Negative) Ur Leukocyte Esterase Negative (Negative) Urine WBC (Auto) Absent (Absent) Urine RBC (Auto) Trace(0-2/hpf) (Absent) Urine Bacteria Absent (Absent) Urine Glucose Negative (Negative) CXR, personally reviewed: no acute process CT brain WO, personally reviewed: IMPRESSION: No acute pathology. Impression: 87M presenting 48H after excision of SCCA from scalp with post-op skin infection with intact sutures DIAGNOSIS & PLAN Primary post-op skin infection of scalp with intact sutures : IV vancomycin 2nd numerous ABX allergies : IVFs : blood & wound CXs : pain control : case reviewed with Rober Teran MD plastic surgery who recommended adding topical mupirocin & he will evaluate in the AM Secondary HTN : continue HCTZ & amlodipine BPH : continue dutasteride/tamsulosin Admission Rational: observation for initiation of ABX for post-op wound infection DVTp: heparin SQ Code Status: full HCP: daughterMyranda
[2018-05-20] MEDS: Mupirocin 2% OINT* TUBE TOPICAL SCH ×3 (05:36→21:21)
[2018-05-20 07:35] LABS: EGFR Non-African American 70.2 (>60)
[2018-05-20 07:36] LABS: INR 0.95 (0.77-1.02)
[2018-05-20 07:37] LABS: EGFR Non-African American 73.6 (>60)
[2018-05-20 08:16] LABS: ABS Basophils 0.1 10^3/ul (0-0.2); ABS Eosinophils 0.4 10^3/ul (0-0.6); ABS Lymphocytes 1.6 10^3/ul (1.0-4.8); ABS Monocytes 0.9 10^3/ul (0-0.8); ABS Neutrophils 9.1 10^3/ul (1.5-7.7); ABS Nucleated RBC 0 10^3/ul; Hematocrit 37 % (42-52); Hemoglobin 12.8 g/dl (14.0-18.0); Lymphocyte % 13.5 % (25-47); Mean Corpuscular HGB Conc 35 g/dl (31-36); Mean Corpuscular Hemoglobin 30 pg (27-31); Mean Corpuscular Volume 86 fL (80-94); Mean Platelet Volume 9.4 um3 (7.4-10.4); Nucleated Red Blood Cells % 0; Platelet Count 203 10^3/ul (150-450); Red Blood Count 4.25 10^6/ul (4.00-5.40); Red Cell Distribution Width 14 % (10.5-15); White Blood Count 12.1 10^3/ul (3.5-10.8)
[2018-05-20] MEDS: Omeprazole CAP* 20 MG PO SCH (08:30)
[2018-05-20] MEDS: Docusate CAP* 100 MG PO SCH ×2 (08:30→20:51)
--- NOTE | 2018-05-20 08:35 | RAD ---
Indication: Headache and fever. CT of the brain was performed without IV contrast. Ventricular structures are midline. No midline shift is noted. The extra-axial spaces are unremarkable. There is no evidence of intracranial mass or hemorrhage. No other high or low density lesions are identified. Mastoid air cells and paranasal sinuses are unremarkable. IMPRESSION: No intracranial mass or hemorrhage is noted.
[2018-05-20] MEDS: Vancomycin(*) 1,250 MG in NS 0.9% 250 ML* 250 ML IVPB SCH ×2 (08:41→21:27)
--- NOTE | 2018-05-20 08:43 | RAD ---
Indication: Fever. 2 views of the chest including dual energy PA views demonstrates no mediastinal shift. Elevated right hemidiaphragm is noted. This was present on November 16, 2009 and is chronic finding. Minimal bibasilar atelectasis is noted. IMPRESSION: No definite pneumonia is identified. Chronically elevated right hemidiaphragm.
[2018-05-20] MEDS: Acetaminophen TAB* 325 MG PO PRN ×3 (10:02→21:31)
[2018-05-20] MEDS: amLODIPine TAB* 5 MG PO SCH (11:19)
[2018-05-20] MEDS: Potassium Chlor TAB* 20 MEQ TAB.ER PO SCH ×2 (11:20→15:12)
[2018-05-20] MEDS: Heparin VIAL(*) 5000 UNITS/ML VIAL (FIVE THOUSAND) SUBCUT SCH ×3 (12:07→21:48)
--- NOTE | 2018-05-20 15:23 | CONS ---
CC: Dr. Mays; Dr. Linda Cruz. * PLASTIC SURGERY CONSULTATION: DATE OF CONSULT: 05/20/18 REASON FOR CONSULTATION: MRSA wound infection, scalp. HISTORY OF PRESENT ILLNESS: The patient is an 87-year-old white male, well known to me from previous treatment for multiple skin carcinomas in the past. He is recently status post excision of a skin carcinoma from his scalp on . The patient states that last night, he developed malaise and pain on his scalp radiating down both sides of his face and into his neck. He took his temperature and it was 103 degrees. He went to the emergency room. He was noted to have erythema surrounding the incision line, and scant purulent drainage was expressible and cultured. This tested positive for MRSA. The patient was given intravenous vancomycin. His initial temperature in the emergency room was 100.4 degrees Fahrenheit and his pulse rate was 104. Blood pressure remained stable. His initial white blood cell count was 13.7. He was admitted to the hospital by Dr. Mays. The patient reports that he is feeling better this morning with much decreased pain in the head and neck area. Other than the initial temperature in the emergency room, he remained afebrile overnight and heart rate was 70 this morning, blood pressure 140/65. Repeat white blood cell count this morning was 12.1. PHYSICAL EXAMINATION: On examination, the patient is noted to be alert, cooperative, in no acute distress. He is sitting up in the chair in his room. Examination of the scalp demonstrates that the sutures are intact. The skin margins are pink and viable. There is no fluctuance or drainage noted. There is mild surrounding erythema noted on the scalp. IMPRESSION: Cellulitis of postop scalp wound with methicillin-resistant Staphylococcus aureus. RECOMMENDATIONS: I agree with continuing with IV vancomycin for now. In addition, I would do warm moist compresses to the scalp and apply mupirocin ointment twice daily. I discussed possibly removing the sutures with the patient, but given that he is improved significantly and there is no fluctuance or drainage noted this morning, I recommended leaving the sutures in for now. I will follow with you. [id number]/CPS #: [id number] MTDD
[2018-05-20] MEDS: Tamsulosin CAP* 0.4 MG PO SCH (20:51)
[2018-05-20] MEDS: Finasteride TAB* 5 MG PO SCH (20:51)
[2018-05-20] MEDS: Melatonin 3 MG TAB PO PRN (20:59)
[2018-05-21] MEDS: Heparin VIAL(*) 5000 UNITS/ML VIAL (FIVE THOUSAND) SUBCUT SCH ×3 (06:24→21:24)
[2018-05-21] MEDS: Omeprazole CAP* 20 MG PO SCH (06:25)
[2018-05-21 07:00] LABS: Hematocrit 37 % (42-52); Hemoglobin 12.7 g/dl (14.0-18.0); Mean Corpuscular HGB Conc 34 g/dl (31-36); Mean Corpuscular Hemoglobin 30 pg (27-31); Mean Corpuscular Volume 87 fL (80-94); Mean Platelet Volume 9.2 um3 (7.4-10.4); Platelet Count 196 10^3/ul (150-450); Red Blood Count 4.24 10^6/ul (4.00-5.40); Red Cell Distribution Width 14 % (10.5-15); White Blood Count 11.1 10^3/ul (3.5-10.8)
[2018-05-21 07:50] LABS: EGFR Non-African American 80.2 (>60)
[2018-05-21] MEDS: Acetaminophen TAB* 325 MG PO PRN (08:42)
[2018-05-21] MEDS: amLODIPine TAB* 5 MG PO SCH (08:42)
[2018-05-21] MEDS: Docusate CAP* 100 MG PO SCH ×2 (08:42→21:25)
[2018-05-21] MEDS ORDERED: Vancomycin Trough Check NOTE FOLLOW UP ONE (09:30)
[2018-05-21] MEDS: Vancomycin(*) 1,250 MG in NS 0.9% 250 ML* 250 ML IVPB SCH (10:31)
[2018-05-21] MEDS: Mupirocin 2% OINT* TUBE TOPICAL SCH ×2 (10:34→21:30)
[2018-05-21] MEDS: Ibuprofen TAB* 400 MG PO PRN ×2 (12:46→21:25)
--- NOTE | 2018-05-21 13:31 | CONS ---
CONSULTATION REPORT: DATE OF CONSULT: 05/21/18 REQUESTING PHYSICIAN: Dr. Linda Cruz. CONSULTING SERVICE: Infectious Disease. REASON FOR CONSULT: Scalp infection. IMPRESSION: 1. Cellulitis of the right posterior scalp after skin carcinoma excision, due to MRSA, blood cultures negative, improving on IV antibiotics. 2. Hypertension. 3. CIPRO and CLINDAMYCIN allergy. 4. CRP increasing, I think that is just a lagging indicator of this infection. RECOMMENDATIONS: Continue vancomycin, goal trough 10 to 15 in another 24 hours. We will reevaluate tomorrow. If he is continuing to improve significantly, could consider change into oral antibiotics. The susceptibility on the MRSA is not back yet. Dr Teran is going to open the incision and see if any material to drain. 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 He said a couple days later, he started to develop some pain in the surgical site and then over the weekend got fever and malaise with headache on both sides of his head. Because of those symptoms, he came to the hospital on , his white count was 13,000 and is down to 11,000 today. He was started on vancomycin. There was not much in the way of wound drainage, but a swab of the incision was sent and is growing Staph aureus, MRSA PCR positive. CRP was 104 when he admitted to the emergency room with 150 today. He was febrile initially. Last fever was yesterday afternoon at 38 degrees. He notes ongoing pain on both sides of his head, which is a little bit better since he got here. His appetite is okay. Does not feel the warmths and sweats that he was having before he came to the hospital. PAST MEDICAL HISTORY: 1. Hypertension. 2. Obstructive sleep apnea. 3. Benign prostatic hypertrophy. 4. Basal cell cancer excision. 5. Squamous cell cancer excision, April 2018. 6. Rheumatic fever. 7. 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 ALLERGIES: CETIRIZINE, CIPRO, CLINDAMYCIN, FLUTICASONE, LISINOPRIL, PENICILLIN cause facial swelling. PRAVASTATIN, STATIN, SULFA cause facial swelling. MEDICATIONS: 1. Tylenol. 2. Albuterol. 3. Amlodipine. 4. Docusate. 5. Finasteride. 6. Heparin subcutaneous injection. 7. Ibuprofen as needed. 8. Melatonin as needed. 9. Omeprazole. 10. Tamsulosin. 11. Vancomycin 1 g every 8 hours. SOCIAL HISTORY: He lives in [place], he is retired. No travel. FAMILY HISTORY: No recurrent infections. REVIEW OF SYSTEMS: All negative, except as noted above in the history of present illness, to a 14-point review of systems. PHYSICAL EXAM: Vital Signs: Temperature is 37, heart rate is 60, respiratory rate 18, blood pressure 130/60, oxygen saturation is 95% on room air. In general, he is awake, not in distress. Neurologic: He is oriented x3. Follows all commands. HEENT: There is no conjunctival hemorrhage. There is no thrush. Right posterior scalp, there is a 3 cm incision, which is intact. Suture is present. Surrounding mild erythema, nontender. There is no fluctuance or crepitans or expressible fluid. Heart: Regular rate and rhythm without murmurs, rubs or gallops. Lungs are clear to auscultation bilaterally. Abdomen: Soft, nontender, nondistended. There are bowel sounds present. Skin : There is no rash or splinter hemorrhages. Musculoskeletal: No spine tenderness to palpation. No joint synovitis. LABORATORY DATA: Creatinine 0.9, CRP 150. White blood cell count 11, hemoglobin 12, platelets 196. Urinalysis shows no blood or protein. Vancomycin trough was 7 this morning. Please see impression and recommendations outlined above. Thanks for asking me to see Mr. Morocho in consultation. [id number]/[facility] #: [id number] [facility]ENT[facility]ober
[2018-05-21] MEDS: Vancomycin(*) 1,000 MG in NS 0.9% 250 ML* 250 ML IVPB SCH (17:57)
[2018-05-21] MEDS: Melatonin 3 MG TAB PO PRN (21:24)
[2018-05-21] MEDS: Finasteride TAB* 5 MG PO SCH (21:24)
[2018-05-21] MEDS: Tamsulosin CAP* 0.4 MG PO SCH (21:24)
[2018-05-22] MEDS: Vancomycin(*) 1,000 MG in NS 0.9% 250 ML* 250 ML IVPB SCH ×2 (02:35→10:12)
[2018-05-22] MEDS: Heparin VIAL(*) 5000 UNITS/ML VIAL (FIVE THOUSAND) SUBCUT SCH ×2 (06:21→14:18)
[2018-05-22] MEDS: Omeprazole CAP* 20 MG PO SCH (06:21)
[2018-05-22 07:07] LABS: Hematocrit 36 % (42-52); Hemoglobin 12.7 g/dl (14.0-18.0); Mean Corpuscular HGB Conc 35 g/dl (31-36); Mean Corpuscular Hemoglobin 31 pg (27-31); Mean Corpuscular Volume 88 fL (80-94); Mean Platelet Volume 9.7 um3 (7.4-10.4); Platelet Count 188 10^3/ul (150-450); Red Blood Count 4.15 10^6/ul (4.00-5.40); Red Cell Distribution Width 14 % (10.5-15); White Blood Count 6.9 10^3/ul (3.5-10.8)
[2018-05-22 09:05] VITALS: BP 154/71
[2018-05-22] MEDS: Docusate CAP* 100 MG PO SCH (09:07)
[2018-05-22] MEDS: amLODIPine TAB* 5 MG PO SCH (09:10)
[2018-05-22] MEDS: Mupirocin 2% OINT* TUBE TOPICAL SCH (09:10)
[2018-05-22 09:58] LABS: Hematocrit for Retic CNT 38 % (42-52); Immature Retic Fraction 0.37; RBC Retic Count 4.29 10^6/ul (4.6-6.2)
--- NOTE | 2018-05-22 10:31 | DS ---
CC: Dr. Teran * DISCHARGE SUMMARY: DATE OF ADMISSION: 05/19/18 DATE OF DISCHARGE: 05/22/18 DISCHARGE DIAGNOSES: 1. MRSA wound infection of the scalp. 2. History of hypertension. 3. History of benign prostatic hypertrophy. 4. History of squamous cell carcinoma of the scalp. 5. Mild anemia, etiology uncertain. 6. Hypokalemia. 7. History of impaired fasting glucose. 8. Hyperglycemia. HISTORY: Ray Morocho is an 87-year-old man admitted with fever, head pain. Please see the dictated admission note for details of the present illness , past medical history, family history, social and personal history, review of systems, and physical examination. LABORATORY DATA: CBC on 05/19/18: WBC 13.7, H and H 13.2/38, MCV 86, PLT 215, 000. INR, PTT normal. Chemistries on admission: Sodium 135, potassium 3.0, chloride 97, CO2 of 27, BUN and creatinine 27/1.1, glucose 181. Rest of the comprehensive metabolic panel was within normal limits. C-reactive protein elevated at 104.84, went up to 148.25 on 05/21/18 and was down to 94.72 on 05/22. Lactic acid was normal at 1.4. Potassium came up to 3.8 on 05/21/18. Urinalysis: Straw clear, specific gravity 1.006, protein 1+, otherwise unremarkable. Vancomycin trough on 05/21/18 was 7.1. Microbiology nasal screen detected MRSA. Culture of wound showed Staph aureus MRSA sensitive to clindamycin, gentamicin, linezolid, quinupristin/dalfopristin, rifampin, tetracycline, doxycycline and minocycline, deduced, trimethoprim sulfa, and vancomycin. Resistant to all other antibiotics tested. Blood cultures were no growth. HOSPITAL COURSE: The patient was admitted and placed on vancomycin. He defervesced. He was seen in consultation by plastic surgeon who had performed his surgery, Dr. Teran. The second time he saw him, which was on 05/21/18, he removed sutures and drained purulent material from the scalp wound. He was seen in consultation by Infectious Disease, Dr. Ramachandran, who recommended vancomycin and recommended he could switch to oral antibiotics the next day. He was afebrile for the 24 hours prior to discharge. His head pain improved. He still is draining some purulent material from the scalp wound, which Dr. Teran said could continue to drain with warm compressors and warm shower. He is being discharged on amlodipine 10 mg daily, hydrochlorothiazide 25 mg daily, Gladys once a day, glucosamine/chondroitin twice a day, magnesium oxide 400 mg once a day, [place]-3 once a day, aspirin 325 mg once a day, doxycycline 100 mg twice a day for 10 days, mupirocin to the wound. Dr. Ramachandran did not recommend mupirocin for the nasal colonization. FOLLOWUP: I will see the patient back in 6 to 7 days. [id number]/[facility] #: [id number] MTDRober
[2018-05-22] MEDS ORDERED: Vancomycin Trough Check NOTE FOLLOW UP ONE (18:30)
== END 2018-05-22 15:00 | disposition home or self-care (01) | DRG 863 ==
LOC: ED 22:36 → MED 05-20 03:15 → INTOOBSV 05-20 03:15 → OBSVTOIN 05-21 09:00
PROVIDERS: ADMIT Hospitalist; ATTEND Internal Medicine Geriatric Medicine
DX: T81.4XXA Infection following a procedure, initial encounter (principal); L03.811 Cellulitis of head [any part, except face]; L76.82 Other postprocedural complications of skin and subcutaneous tissue; H92.01 Otalgia, right ear; I10 Essential (primary) hypertension; N40.0 Benign prostatic hyperplasia without lower urinary tract symptoms; M16.0 Bilateral primary osteoarthritis of hip; M17.0 Bilateral primary osteoarthritis of knee; G47.33 Obstructive sleep apnea (adult) (pediatric); A49.02 Methicillin resistant Staphylococcus aureus infection, unspecified site; D64.9 Anemia, unspecified; E87.6 Hypokalemia; Y69 Unspecified misadventure during surgical and medical care; B95.62 Methicillin resistant Staphylococcus aureus infection as the cause of diseases classified elsewhere; E66.9 Obesity, unspecified; R73.9 Hyperglycemia, unspecified; Z79.82 Long term (current) use of aspirin; Z98.41 Cataract extraction status, right eye; Z98.42 Cataract extraction status, left eye; Z85.828 Personal history of other malignant neoplasm of skin; Z88.1 Allergy status to other antibiotic agents; Z88.0 Allergy status to penicillin; Z88.2 Allergy status to sulfonamides; Z88.8 Allergy status to other drugs, medicaments and biological substances; Z87.01 Personal history of pneumonia (recurrent); Z80.1 Family history of malignant neoplasm of trachea, bronchus and lung; Z82.3 Family history of stroke; Z72.89 Other problems related to lifestyle; Z87.891 Personal history of nicotine dependence; Z89.021 Acquired absence of right finger(s); Z68.31 Body mass index [BMI] 31.0-31.9, adult; Y92.9 Unspecified place or not applicable
CPT/HCPCS: 36415; 70450; 71046; 80048; 80053; 80202; 81003; 81015; 82565; 82607; 82728; 82746; 83036; 83540; 83550; 83605; 84520; 85025; 85027; 85045; 85610; 85730; 86140; 87040; 87070; 87077; 87186; 87205; 87640; 87641; 94640; 99284; A9270-GY; G0378; J1644; J3370

== ENCOUNTER → 2019-09-17 14:20 | Day surgery (SDC) | payer MEDICARE ==
[~2019-09-17 14:20] MED LIST changes: +BSS OPTH.SOL* BTL ONE; -Buffered Lidocaine 0.9% SYRIN* 5 ML/SYR SYRINGE INTRADERM ONE; +Buffered Lidocaine 1% SYRIN* 1 ML/SYRINGE INTRADERM ONE; +Bupivacaine 0.25% SDV PF* 10 ML VIAL INJ ONE; -Dexamethasone IV* 4 MG/ML 1 ML (4 MG) IV SLOW PU ONE; -Famotidine IV* 10 MG/ML 2 ML (20 mg) IV ONE; +Lactated Ringers 1000 ML Bag* 1,000 ML IV SCH; +Lidocaine 1% w EPI 1:100,000* MDV 20 ML VIAL ONE; +Lidocaine 2% PF * 5 ML VIAL ONE; +Midazolam* 1 MG/ML 2 ML VIAL (2 MG) ONE; +Mineral Oil Sterile, TOPICAL* 25 ML BTL ONE; +Naloxone* 0.4 MG/ML 1 ML VIAL IV PRN; +Povidone Iodine 5% OPTH* 30 ML BTL ONE; +Propofol* 10 MG/ML 20 ML BTL ONE; +Vancomycin 1500 MG IV - x ONCE IVPB ONE; +fentaNYL* 50 MCG/ML 2 ML VIAL (100 MCG VIAL) ONE
[2019-09-17 19:51] VITALS: BP 171/67
== END | disposition home or self-care (01) ==
LOC: OR 14:20
PROVIDERS: ATTEND Plastic Surgery
DX: C44.311 Basal cell carcinoma of skin of nose (principal); I10 Essential (primary) hypertension; E78.00 Pure hypercholesterolemia, unspecified; Z85.828 Personal history of other malignant neoplasm of skin
CPT/HCPCS: 88305; 88331; 88332; A9270-GY; J2250; J2704; J3010; J3370; J3490

== ENCOUNTER 2020-10-23 02:15 | Inpatient (IN) ==
[2020-10-23 02:57] LABS: ABS Basophils 0.1 10^3/ul (0-0.2); ABS Eosinophils 0.3 10^3/ul (0-0.6); ABS Lymphocytes 1.8 10^3/ul (1.0-4.8); ABS Neutrophils 9.5 10^3/ul (1.5-7.7); Eosinophil % 2.3 %; Hematocrit 39 % (42-52); Hemoglobin 13.3 g/dL (14.0-18.0); Lymphocyte % 14.4 %; Mean Corpuscular HGB Conc 34 g/dL (31-36); Mean Corpuscular Hemoglobin 30 pg (27-31); Mean Corpuscular Volume 88 fL (80-94); Mean Platelet Volume 8.8 fL (7.4-10.4); Platelet Count 243 10^3/uL (150-450); Red Blood Count 4.39 10^6 /uL (4.18-5.48); Red Cell Distribution Width 13 % (10-15); White Blood Count 12.7 10^3/uL (3.5-10.8)
[2020-10-23 03:01] LABS: INR 1.05 (0.82-1.09)
[2020-10-23 03:13] LABS: ALT 21 U/L (7-52); AST 23 U/L (13-39); Albumin 3.8 g/dL (3.2-5.2); Albumin/Globulin Ratio 1.2 (1-3); Alkaline Phosphatase 67 U/L (34-104); Anion Gap 8 mmol/L (2-11); BUN/Creatinine Ratio 23.1 (8-20); Blood Urea Nitrogen 27 mg/dL (6-24); CO2 Carbon Dioxide 26 mmol/L (22-32); Chloride 96 mmol/L (101-111); EGFR African American 71.2 (>60); EGFR Non-African American 58.8 (>60); Globulin 3.2 g/dL (2-4); Glucose 186 mg/dL (70-100); Potassium 3.9 mmol/L (3.5-5.0); Sodium 130 mmol/L (135-145)
[2020-10-23 03:20] LABS: Troponin I 0.85 ng/mL (<0.03)
[2020-10-23] MEDS ORDERED: Heparin DRIP 25,000 UNITS BAG 25,000 UNITS/500 ML BAG IV SCH (03:30)
[2020-10-23] MEDS ORDERED: Iodixanol (CONTRAST) 320 MG/ML 100 ML SDV IV ONE (03:42)
[2020-10-23] MEDS ORDERED: Heparin 5000 UNITS/ML 1 mL VIAL IV SCH (04:00)
[2020-10-23 05:11] LABS: Cholesterol 204 mg/dL; HDL Cholesterol 39.8 mg/dL; LDL Cholesterol 116 mg/dL; Magnesium 1.8 mg/dL (1.9-2.7); Triglycerides 240 mg/dL
[2020-10-23] MEDS ORDERED: Magnesium Sulfate IV 1GM/100ML 1 GM/100 ML BAG IV ONE ×2 (05:29→09:46)
[2020-10-23 05:42] LABS: TSH Ultra Thyroid Stim Horm 1.74 mcIU/mL (0.34-5.60)
[2020-10-23 05:53] LABS: Vitamin B12 330 pg/mL (180-914)
[2020-10-23 07:08] LABS: Troponin I 23.13 ng/mL (<0.03)
[2020-10-23] MEDS ORDERED: NS 0.9% 1000 ml BAG 1,000 ML IV SCH ×2 (09:00→12:45)
[2020-10-23 09:06] LABS: Troponin I 29.89 ng/mL (<0.03)
[2020-10-23] MEDS ORDERED: Perflutren Lipid Microsphere 3 ML VIAL ONE (09:31)
[2020-10-23] MEDS ORDERED: Amiodarone 360 MG IVPREMIX 360 MG/200 ML BAG IV ONE (09:50)
[2020-10-23] MEDS ORDERED: Heparin 2 UNITS/ML 1000 mls 2,000 ML IV ONE (10:06)
[2020-10-23] MEDS ORDERED: Iodixanol 320 (CONTRAST) 100 ML SDV ONE (10:06)
[2020-10-23] MEDS ORDERED: Lidocaine 1% VIAL 10 MG/ML VIAL ONE (10:06)
[2020-10-23] MEDS ORDERED: fentaNYL 100 mcg/2 ml 50 MCG/ML VIAL ONE (10:07)
[2020-10-23] MEDS ORDERED: VERAPAMIL 2.5 MG/ML 2 ML VIAL ** 5 mg/2 ml ONE (10:07)
[2020-10-23] MEDS ORDERED: Midazolam 5 mg/5 ml VIAL 1 mg/ml 5 ml VIAL (5 mg) ONE (10:07)
[2020-10-23] MEDS ORDERED: Heparin 1,000 UNIT/ML 10 ml (10,000 UNITS) CATHLAB/DIALYSIS ONE (10:07)
[2020-10-23] MEDS ORDERED: nitroGLYCERIN DRIP 25,000 MCG/250 ML BTL ONE (10:08)
[2020-10-23 11:15] LABS: Activated Partial Thrombo Time 45.7 seconds (26.0-38.0); INR 1.03 (0.82-1.09)
[2020-10-23] MEDS ORDERED: Bivalirudin 250 MG VIAL ONE (12:04)
[2020-10-23] MEDS ORDERED: Furosemide 20 mg/2 ml IV VIAL IV ONE (12:46)
[2020-10-23] MEDS: Aspirin EC 81 mg TAB.EC (enteric coated) PO SCH (13:15)
[2020-10-23] MEDS: CMCS: Rosuvastatin 20 mg TAB (NF) PO SCH ×2 (13:15→17:17)
[2020-10-23] MEDS: COENZYME Q10 200 MG PO SCH (13:15)
[2020-10-23] MEDS: EPLERONONE 25 MG PO SCH (13:17)
[2020-10-23] MEDS ORDERED: Dutasteride/Tamsulosin (NF) PO SCH (18:00)
[2020-10-23] MEDS ORDERED: Ondansetron 4 mg VIAL 2 MG/ML 2 ml VIAL IV ONE (20:37)
[2020-10-23] MEDS ORDERED: Ondansetron 4 mg VIAL 2 MG/ML 2 ml VIAL ONE (20:38)
[2020-10-23] MEDS: Famotidine IV 10 MG/ML 2 ml VIAL (20 mg) IV SLOW PU SCH (22:29)
[2020-10-24 05:02] LABS: ABS Eosinophils 0.3 10^3/ul (0-0.6); ABS Lymphocytes 1.7 10^3/ul (1.0-4.8); ABS Monocytes 0.8 10^3/ul (0-0.8); ABS Neutrophils 8.4 10^3/ul (1.5-7.7); Eosinophil % 2.8 %; Hematocrit 37 % (42-52); Hemoglobin 12.9 g/dL (14.0-18.0); Lymphocyte % 14.7 %; Mean Corpuscular HGB Conc 35 g/dL (31-36); Mean Corpuscular Hemoglobin 31 pg (27-31); Mean Corpuscular Volume 88 fL (80-94); Mean Platelet Volume 8.5 fL (7.4-10.4); Platelet Count 241 10^3/uL (150-450); Red Cell Distribution Width 13 % (10-15); White Blood Count 11.2 10^3/uL (3.5-10.8)
[2020-10-24 05:20] LABS: Anion Gap 8 mmol/L (2-11); BUN/Creatinine Ratio 15.5 (8-20); Blood Urea Nitrogen 17 mg/dL (6-24); CO2 Carbon Dioxide 24 mmol/L (22-32); Calcium 8.3 mg/dL (8.6-10.3); Chloride 98 mmol/L (101-111); EGFR African American 76.4 (>60); EGFR Non-African American 63.2 (>60); Glucose 127 mg/dL (70-100); Magnesium 1.9 mg/dL (1.9-2.7); Potassium 3.6 mmol/L (3.5-5.0); Sodium 130 mmol/L (135-145)
[2020-10-24 05:25] LABS: Troponin I 12.19 ng/mL (<0.03)
[2020-10-24] MEDS ORDERED: Potassium Chlor 20 meq TAB.ER PO ONE (06:01)
[2020-10-24] MEDS: COENZYME Q10 200 MG PO SCH (07:49)
[2020-10-24] MEDS: Aspirin EC 81 mg TAB.EC (enteric coated) PO SCH (07:49)
[2020-10-24] MEDS: EPLERONONE 25 MG PO SCH (07:50)
[2020-10-24] MEDS: Famotidine IV 10 MG/ML 2 ml VIAL (20 mg) IV SLOW PU SCH ×2 (07:50→20:41)
[2020-10-24] MEDS: CMCS: Rosuvastatin 20 mg TAB (NF) PO SCH (16:32)
[2020-10-25 05:27] LABS: ABS Eosinophils 0.4 10^3/ul (0-0.6); ABS Lymphocytes 1.8 10^3/ul (1.0-4.8); ABS Monocytes 0.8 10^3/ul (0-0.8); ABS Neutrophils 5.9 10^3/ul (1.5-7.7); Eosinophil % 4.1 %; Hematocrit 34 % (42-52); Hemoglobin 11.7 g/dL (14.0-18.0); Lymphocyte % 20.4 %; Mean Corpuscular HGB Conc 35 g/dL (31-36); Mean Corpuscular Hemoglobin 31 pg (27-31); Mean Corpuscular Volume 88 fL (80-94); Mean Platelet Volume 8.9 fL (7.4-10.4); Platelet Count 230 10^3/uL (150-450); Red Blood Count 3.84 10^6 /uL (4.18-5.48); Red Cell Distribution Width 13 % (10-15); White Blood Count 8.9 10^3/uL (3.5-10.8)
[2020-10-25 05:43] LABS: Anion Gap 8 mmol/L (2-11); BUN/Creatinine Ratio 18.8 (8-20); Blood Urea Nitrogen 22 mg/dL (6-24); CO2 Carbon Dioxide 24 mmol/L (22-32); Calcium 8.2 mg/dL (8.6-10.3); Chloride 100 mmol/L (101-111); EGFR African American 71.2 (>60); EGFR Non-African American 58.8 (>60); Glucose 107 mg/dL (70-100); Magnesium 1.9 mg/dL (1.9-2.7); Potassium 4.1 mmol/L (3.5-5.0); Sodium 132 mmol/L (135-145)
[2020-10-25] MEDS: Aspirin EC 81 mg TAB.EC (enteric coated) PO SCH (09:22)
[2020-10-25] MEDS: Famotidine IV 10 MG/ML 2 ml VIAL (20 mg) IV SLOW PU SCH (09:25)
[2020-10-25] MEDS: COENZYME Q10 200 MG PO SCH (09:29)
[2020-10-25] MEDS: EPLERONONE 25 MG PO SCH (10:57)
[2020-10-25 11:05] VITALS: BP 143/62
== END 2020-10-25 12:45 | disposition home or self-care (01) | DRG 247 ==
LOC: ED 02:15 → MEDTELE 04:47 → ICU 12:30 → MEDTELE 10-24 12:34
PROVIDERS: ADMIT Internal Medicine; ATTEND Internal Medicine